=== PATIENT | male | born 1955 | race Caucasian/White ===

== ENCOUNTER 2022-10-03 21:49 | Inpatient (IN) ==
[2022-10-03] MEDS ORDERED: ONDANSETRON INJ 2 MG/ML 2 ML VIAL IV STA (22:11)
[2022-10-03] MEDS ORDERED: MoRPHine SULFATE 4 MG/ML 1 ML CARP\\VIAL IV STA (22:11)
[2022-10-03] MEDS ORDERED: SODIUM CHLORIDE 0.9% 1000ML 1,000 ML IV STA (22:11)
[2022-10-03 22:26] LABS: Basophils # (auto) 0.02 K/uL (0-0.2); Basophils % (auto) 0.3 %; Eosinophils # (auto) 0.01 K/uL (0-0.50); Eosinophils % (auto) 0.2 %; Hematocrit (blood only) 39.6 % (42.0-52.0); Immature Granulocytes # (auto) 0.02 K/uL (0.01-0.20); Immature Granulocytes % (auto) 0.3 %; Lymphocytes # (auto) 0.71 K/uL (1.2-3.4); Lymphocytes % (auto) 11.5 %; Mean Corpuscular Hemoglobin 29.8 pg (25.0-34.0); Mean Corpuscular Hgb Conc 35.4 g/dL (32.0-36.0); Mean Corpuscular Volume 84.3 fL (80.0-100.0); Mean Platelet Volume 10.9 fL (9.4-12.4); Monocytes # (auto) 0.32 K/uL (0.11-0.59); Monocytes % (auto) 5.2 %; Neutrophils # (auto) 5.09 K/uL (1.40-6.50); Neutrophils % (auto) 82.5 %; Platelet Count 153 K/uL (130-400); RDW Standard Deviation 39.9 fL (36.4-46.3); White Blood Count 6.17 K/ul (4.8-10.8)
[2022-10-03 22:31] LABS: iSTAT Creatinine 1.5 mg/dl (0.6-1.3); iSTAT Hemoglobin 13.9 g/dl (14.0-18.0); iSTAT Ionized Calcium 1.09 mmol/l (1.12-1.32)
--- NOTE | 2022-10-03 22:36 | Emergency Department Note ---
History of Present Illness General Chief complaint: Back Injury/Pain Stated complaint: BILATERAL LOWER BACK PAIN, ABD PAIN Time Seen by Provider: 10/03/22 22:05 History of Present Illness Maximum Pain Intensity: 8 This 67-year-old male presents the ER complaining of severe abdominal pain that radiates to his back with jaw pain nausea and vomiting. Patient is pale. is concerned about the way he looks. No history of similar symptoms in the past. No history of kidney stones. Patient denies fever, chills, testicular pain, penile pain, urinary problems. No history of severe pain like this in the past. No numbness or tingling. Home Medications Medication Instructions Recorded Confirmed Type antiarthritic combination no.2 900 900 mg PO QAM 02/13/20 10/03/22 History mg tablet (glucosamine-chondroitin) aspirin 81 mg tablet,delayed 81 mg PO QAM 02/13/20 10/03/22 History release (Adult Aspirin Regimen) cholecalciferol (vitamin D3) 25 25 mcg PO QAM 02/13/20 10/03/22 History mcg (1,000 unit) capsule metformin 500 mg tablet 500 mg PO QAM 02/13/20 10/03/22 History tamsulosin 0.4 mg capsule 0.4 mg PO QAM 02/19/20 10/03/22 History vitamin B complex 1 tab PO QAM 08/12/20 10/03/22 History vitamin E 268 mg (400 unit) capsule 400 unit PO QAM 08/13/20 10/03/22 History citalopram 20 mg tablet 20 mg PO DAILY 10/28/20 10/03/22 History donepezil 10 mg tablet 10 mg PO QAM #90 tabs 09/02/22 10/03/22 Rx Allergies Allergy/AdvReac Type Severity Reaction Status Date / Time erythromycin base Allergy Intermediate rash? Verified 10/03/22 22:52 Macrolide Antibiotics AdvReac Mild ear pain Verified 10/03/22 22:52 Past Med/Surg History Medical History Anxiety no meds BPH (benign prostatic hyperplasia) Chronic back pain 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 Dr. Nielsen 2013 History of cataract surgery bilat History of colonoscopy History of left inguinal hernia repair (09/01/20) Left Inguinal Hernia Open Repair(Left) with mesh- Mata Nielsen MD, FACS 09/01/20 History of surgical removal of lesion Renal cancer lesion removed Mack teeth extracted Family History Uncle Alzheimer disease Aunt Alzheimer disease Mother Cancer Father Aortic aneurysm Other Heart disease Social History Smoking Status: Never smoker Tobacco Type: Smokeless Tobacco (Dip or Chew) Second Hand Exposure: No; Do You Dip or Chew Tobacco: Yes (1 can per 4 days); Hx Alcohol Use: Yes Alcohol type: hard liquor Alcohol Intake Frequency: Monthly or Less Hx Substance Use: No Preferred Language: Andorran Communication Ability: Effective Licensing Manager Required: No Beliefs That Will Affect Care: None marital status: Current Living Situation: Spouse current occupational status: employed Feels Safe at Home: Yes Assistive Devices: Denture - Upper and Glasses Review of Systems A total of 10 systems reviewed and were otherwise negative Physical Exam Vital Signs Vital Signs - 24 hr 10/03/22 21:53 10/03/22 21:59 10/03/22 23:46 Temperature 36.5 C Temperature Source Oral Pulse Rate 67 62 Pulse Rate from SpO2 Sensor Respiratory Rate 22 Blood Pressure 166/93 H Blood Pressure Mean 117 Blood Pressure Position Semi-fowlers Pulse Oximetry 98 91 Oxygen Delivery Method Room Air Room Air Oxygen Flow Rate Sepsis Recent Fever Within 48 Hours No Sepsis New/Unexplained Change in Mental Status N/A Sepsis Action Taken by Nursing No Action Required 10/03/22 22:30 10/03/22 22:30 10/03/22 23:00 Temperature Temperature Source Pulse Rate 71 Pulse Rate from SpO2 Sensor 71 Respiratory Rate 22 Blood Pressure 163/89 H 156/94 H Blood Pressure Mean 113 114 Blood Pressure Position Pulse Oximetry 97 Oxygen Delivery Method Room Air Oxygen Flow Rate Sepsis Recent Fever Within 48 Hours Sepsis New/Unexplained Change in Mental Status Sepsis Action Taken by Nursing 10/03/22 23:00 10/03/22 23:30 10/03/22 23:30 Temperature Temperature Source Pulse Rate 71 61 Pulse Rate from SpO2 Sensor 71 60 Respiratory Rate 17 18 Blood Pressure 165/94 H Blood Pressure Mean 117 Blood Pressure Position Pulse Oximetry 97 97 Oxygen Delivery Method Room Air Room Air Oxygen Flow Rate Sepsis Recent Fever Within 48 Hours Sepsis New/Unexplained Change in Mental Status Sepsis Action Taken by Nursing 10/04/22 00:00 10/04/22 00:13 Temperature Temperature Source Pulse Rate Pulse Rate from SpO2 Sensor Respiratory Rate Blood Pressure Blood Pressure Mean Blood Pressure Position Pulse Oximetry 80 L 94 Oxygen Delivery Method Room Air Nasal Cannula Oxygen Flow Rate 2 Sepsis Recent Fever Within 48 Hours Sepsis New/Unexplained Change in Mental Status Sepsis Action Taken by Nursing VITALS: Vitals are noted on the nurse's note and reviewed by myself. Vital signs stable. GENERAL: Pleasant male who appears in pain, in no acute distress, nondiaphoretic, well-developed well-nourished. SKIN: The skin was without rashes, erythema, edema, or bruising. There is no tenting of the skin. Capillary reflex less than 2 seconds. HEAD: Normocephalic atraumatic. EARS: External auditory canals clear, EYES: Pupils equal round and reactive to light and accommodation. Conjunctivae without injection, sclerae without icterus. Extraocular movements intact. NOSE: Patent, turbinates without inflammation or discharge. MOUTH: Mucous membranes moist. Pharynx without erythema or exudate. Uvula midline. Airway patent. Tongue does not deviate. NECK: Supple without nuchal rigidity. No lymphadenopathy. No thyromegaly. Cervical spine is nontender. No JVD. HEART: Regular rate and rhythm LUNGS: Clear to auscultation bilaterally without wheezes, rales or rhonchi. No retractions or accessory muscle use. ABDOMEN: Positive bowel sounds x 4. Normal tympanic percussion. Soft, nontender, without masses or organomegaly. Gomez sign negative. No guarding or rebound tenderness. No CVA tenderness MUSCULOSKELETAL: No muscle atrophy, erythema, or edema noted. NEURO: Patient was alert and oriented to person place and time. Normal sensation to light and sharp touch. No focal neurological deficits. Course Administered Medications Discontinued Medications Hydromorphone HCl (Hydromorphone Inj 1 Mg/Ml Syringe) 1 mg IV NOW STA Stop: 10/03/22 22:52 Last Admin: 10/03/22 23:02 Dose: 1 mg Documented By: JUANA Sodium Chloride (Nss 1000ml) 1,000 mls @ 999 mls/hr IV .Q1H1M STA Stop: 10/03/22 23:11 Last Infusion: 10/03/22 23:32 Dose: 0 mls/hr Documented By: Admin: 10/03/22 22:24 Dose: 999 mls/hr Documented By: Ioversol (Optiray 320 500ml) 125 ml IV ONCE ONE Stop: 10/03/22 23:33 Last Admin: 10/03/22 23:32 Dose: 105 ml Documented By: KAMRAN Morphine Sulfate (Morphine Sulfate 4 Mg/Ml 1 Ml Carp\Vial) 4 mg IV NOW STA Stop: 10/03/22 22:12 Last Admin: 10/03/22 22:22 Dose: 4 mg Documented By: Ondansetron HCl (Ondansetron Inj 2 Mg/Ml 2 Ml Vial) 4 mg IV NOW STA Stop: 10/03/22 22:12 Last Admin: 10/03/22 22:21 Dose: 4 mg Documented By: Medical Decision Making Medical Records Attestation: I reviewed the patient's medical records. Home Medications Current Medication List: was personally reviewed by me Laboratory Data Attestation: I reviewed the patient's lab results. 10/03/22 21:59 10/03/22 21:59 Lab Results 10/03/22 10/03/22 10/03/22 Range/Units 21:59 21:59 22:19 WBC 6.17 (4.8-10.8) K/ul RBC 4.70 (4.70-6.10) M/uL Hgb 14.0 (14.0-18.0) g/dl POC Hgb 13.9 L (14.0-18.0) g/dl Hct 39.6 L (42.0-52.0) % POC Hct 41 L (42-52) % MCV 84.3 (80.0-100.0) fL MCH 29.8 (25.0-34.0) pg MCHC 35.4 (32.0-36.0) g/dL RDW Std Deviation 39.9 (36.4-46.3) fL RDW Coeff of Renita 13.0 (11.5-14.5) % Plt Count 153 (130-400) K/uL MPV 10.9 (9.4-12.4) fL Immature Gran % (Auto) 0.3 % Neut % (Auto) 82.5 % Lymph % (Auto) 11.5 % Dundy % (Auto) 5.2 % Eos % (Auto) 0.2 % Baso % (Auto) 0.3 % Neut # (Auto) 5.09 (1.40-6.50) K/uL Lymph # (Auto) 0.71 L (1.2-3.4) K/uL Dundy # (Auto) 0.32 (0.11-0.59) K/uL Eos # (Auto) 0.01 (0-0.50) K/uL Baso # (Auto) 0.02 (0-0.2) K/uL Immature Gran # (Auto) 0.02 (0.01-0.20) K/uL POC Sodium 140 (135-144) mmol/L Sodium 138 (136-145) mmol/L POC Potassium 4.0 (3.3-5.0) mmol/L Potassium 3.9 (3.5-5.1) mmol/L POC Chloride 105 (101-112) mmol/L Chloride 106 (98-107) mmol/L Carbon Dioxide 19 L (21-32) mmol/L POC Total CO2 17 L (24-31) mmol/L Anion Gap 13 H (3-11) POC Anion Gap 22.0 (16-25) mmol/L POC BUN 21 H (7-18) mg/dl BUN 21 (6-23) mg/dl Creatinine 1.48 H (0.6-1.4) mg/dl POC Creatinine 1.5 H (0.6-1.3) mg/dl Est Cr Clr Drug Dosing 55.5 ml/min Est GFR ( Amer) 56.3 ml/min Est GFR (Non-Af Amer) 48.6 ml/min BUN/Creatinine Ratio 14.2 (10-20) Glucose 150 H (70-99(Fasting)) mg/dl POC Glucose (other) 154 H (70-99) mg/dl Calcium 9.1 (8.6-10.3) mg/dl POC Ioniz Calcium Charisse 1.09 L (1.12-1.32) mmol/l Total Bilirubin 0.6 (0.2-1.0) mg/dl AST 25 (13-39) U/L ALT 12 (7-52) U/L Alkaline Phosphatase 70 (34-104) U/L Troponin I High Sens 4.7 (0-20) pg/ml Total Protein 7.0 (6.0-8.3) gm/dl Albumin 4.3 (3.4-5.0) gm/dl Globulin 2.7 (2.5-4.0) gm/dl Albumin/Globulin Ratio 1.6 (0.9-2) Lipase 32 (11-82) U/L Urine Color Urine Appearance (Clear) Urine pH (4.5-7.5) Ur Specific [place] (1.000-1.030) Urine Protein (Negative) Urine Glucose (UA) (Negative) Urine Ketones (Negative) Urine Blood (Negative) Urine Nitrite (Negative) Urine Bilirubin (Negative) Urine Urobilinogen (Negative) Ur Leukocyte Esterase (Negative) Urine WBC (Auto) (0-5) /hpf Urine RBC (Auto) (0-4) /hpf U Hyaline Cast (Auto) (0-5) /lpf U Epithel Cells (Auto) (0-5) /lpf Urine Bacteria (Auto) (Negative) SARS-CoV-2, RNA, NAAT (NEGATIVE) 10/03/22 10/03/22 Range/Units 23:38 23:38 WBC (4.8-10.8) K/ul RBC (4.70-6.10) M/uL Hgb (14.0-18.0) g/dl POC Hgb (14.0-18.0) g/dl Hct (42.0-52.0) % POC Hct (42-52) % MCV (80.0-100.0) fL MCH (25.0-34.0) pg MCHC (32.0-36.0) g/dL RDW Std Deviation (36.4-46.3) fL RDW Coeff of Renita (11.5-14.5) % Plt Count (130-400) K/uL MPV (9.4-12.4) fL Immature Gran % (Auto) % Neut % (Auto) % Lymph % (Auto) % Dundy % (Auto) % Eos % (Auto) % Baso % (Auto) % Neut # (Auto) (1.40-6.50) K/uL Lymph # (Auto) (1.2-3.4) K/uL Dundy # (Auto) (0.11-0.59) K/uL Eos # (Auto) (0-0.50) K/uL Baso # (Auto) (0-0.2) K/uL Immature Gran # (Auto) (0.01-0.20) K/uL POC Sodium (135-144) mmol/L Sodium (136-145) mmol/L POC Potassium (3.3-5.0) mmol/L Potassium (3.5-5.1) mmol/L POC Chloride (101-112) mmol/L Chloride (98-107) mmol/L Carbon Dioxide (21-32) mmol/L POC Total CO2 (24-31) mmol/L Anion Gap (3-11) POC Anion Gap (16-25) mmol/L POC BUN (7-18) mg/dl BUN (6-23) mg/dl Creatinine (0.6-1.4) mg/dl POC Creatinine (0.6-1.3) mg/dl Est Cr Clr Drug Dosing ml/min Est GFR ( Amer) ml/min Est GFR (Non-Af Amer) ml/min BUN/Creatinine Ratio (10-20) Glucose (70-99(Fasting)) mg/dl POC Glucose (other) (70-99) mg/dl Calcium (8.6-10.3) mg/dl POC Ioniz Calcium Charisse (1.12-1.32) mmol/l Total Bilirubin (0.2-1.0) mg/dl AST (13-39) U/L ALT (7-52) U/L Alkaline Phosphatase (34-104) U/L Troponin I High Sens (0-20) pg/ml Total Protein (6.0-8.3) gm/dl Albumin (3.4-5.0) gm/dl Globulin (2.5-4.0) gm/dl Albumin/Globulin Ratio (0.9-2) Lipase (11-82) U/L Urine Color Yellow Urine Appearance Clear (Clear) Urine pH 8.5 H (4.5-7.5) Ur Specific [place] 1.022 (1.000-1.030) Urine Protein Negative (Negative) Urine Glucose (UA) Negative (Negative) Urine Ketones 2+ H (Negative) Urine Blood Trace H (Negative) Urine Nitrite Negative (Negative) Urine Bilirubin Negative (Negative) Urine Urobilinogen Negative (Negative) Ur Leukocyte Esterase Negative (Negative) Urine WBC (Auto) 0 (0-5) /hpf Urine RBC (Auto) 0-4 (0-4) /hpf U Hyaline Cast (Auto) 0 (0-5) /lpf U Epithel Cells (Auto) 0-5 (0-5) /lpf Urine Bacteria (Auto) Negative (Negative) SARS-CoV-2, RNA, NAAT NEGATIVE (NEGATIVE) Imaging Data Attestation: I personally reviewed and interpreted this imaging study as follows: Radiologist's Impression: Abdomen/Pelvis CTA 10/03/22 22:11 Exam(s): CTA ABDOMEN + PELVIS With Contrast IV Amt: 105 ml optiray 320 EXAM: CT Angiography Abdomen and Pelvis With Runoff to the Lower Extremities With Intravenous Contrast CLINICAL HISTORY: Reason for exam: severe abd pain to back. TECHNIQUE: Axial computed tomographic angiography images of the abdomen, pelvis and lower extremities with intravenous contrast. Automated exposure control was utilized for the study. A dose lowering technique was utilized adhering to the principles of ALARA. MIP reconstructed images were created and reviewed. CONTRAST: Patient received 105 ml optiray 320 of IV contrast COMPARISON: Comparison made to prior CT scan of the abdomen pelvis from April 08, 2019. FINDINGS: VASCULATURE: Aorta: No acute findings. No abdominal aortic aneurysm. No dissection. Celiac trunk and mesenteric arteries: No acute findings. No occlusion or significant stenosis. Renal arteries: No acute findings. No occlusion or significant stenosis. Right iliac arteries: No acute findings. No occlusion or significant stenosis. Left iliac arteries: No acute findings. No occlusion or significant stenosis. Lung bases: Unremarkable. No mass. No consolidation. ABDOMEN: Liver: Hepatic steatosis.. No mass. Gallbladder and bile ducts: Unremarkable. No calcified stones. No ductal dilation. Pancreas: Unremarkable. No ductal dilation. No mass. Spleen: Unremarkable. No splenomegaly. Adrenals: Unremarkable. No mass. Kidneys and ureters: Left hydronephrosis with significant inflammation of soft tissue stranding about the left ureter. Left nephrolithiasis. Right renal cysts. No solid mass. Stomach and bowel: Diverticulosis throughout the colon. There is thickening and edema of the ascending, descending and sigmoid colon wall and rectal wall with mild inflammation of the adjacent fat. No obstruction. No mucosal thickening. PELVIS: Appendix: No findings to suggest acute appendicitis. Bladder: Unremarkable. No mass. Reproductive: Prostatomegaly with moderate mass-effect on the urinary trigone. ABDOMEN, PELVIS and LOWER EXTREMITIES: Intraperitoneal space: Unremarkable. No significant fluid collection. No free air. Bones/joints: Moderate to advanced disc degeneration at L1 to through L5-S1. No acute fracture. No dislocation. Soft tissues: There is a 9.5 mm fat-containing umbilical hernia. Lymph nodes: Unremarkable. No enlarged lymph nodes. IMPRESSION: Normal arteries of the abdomen and pelvis. Left hydronephrosis with findings concerning for recently passed urinary calculus. Findings concerning for colitis of the ascending, descending and sigmoid colon with proctitis, which may be of infectious or inflammatory etiologies. Hepatic steatosis. Diverticulosis throughout the colon. Left nephrolithiasis. Electronically signed by: Myriam Cunningham MD 10/04/22 00:00 AM Chest CTA 10/03/22 22:11 Exam(s): CTA CHEST W/WO Contrast IV Amt: 105 ml optiray 320 EXAM: CT Angiography Chest Without and With Intravenous Contrast CLINICAL HISTORY: Reason for exam: severe abd pain to back. TECHNIQUE: Axial computed tomographic angiography images of the chest without and with intravenous contrast. Automated exposure control was utilized for the study. A dose lowering technique was utilized adhering to the principles of ALARA. MIP reconstructed images were created and reviewed. CONTRAST: Patient received 105 ml optiray 320 of IV contrast COMPARISON: No relevant prior studies available. FINDINGS: Pulmonary arteries: Unremarkable. No pulmonary embolism. Aorta: Ascending aortic aneurysm measuring 35.5 mm in diameter. Lungs: Unremarkable. No mass. No consolidation. Pleural space: Unremarkable. No significant effusion. No pneumothorax. Heart: Unremarkable. No cardiomegaly. No significant pericardial effusion. No evidence of RV dysfunction. Bones/joints: No acute fracture. No dislocation. Soft tissues: Small hiatal hernia. Small lipoma in the right infraspinatus muscle. Lymph nodes: Unremarkable. No enlarged lymph nodes. IMPRESSION: Ascending aortic aneurysm measuring 35.5 mm in diameter. Otherwise, negative CT angiogram of the chest. Electronically signed by: Myriam Cunningham MD 10/04/22 00:04 AM MDM Narrative Prior records/ancillary studies reviewed. Triage Nursing notes reviewed. Additional history obtained from family. The patient's history was concerning for severe abdominal pain that radiates to his back with jaw pain. Differential diagnosis: Etiologies such as dissection, cardiac, appendicitis, diverticulitis, PUD, biliary pathology, UTI, pancreatitis, obstruction, mesenteric ischemia, aortic pathology, infections, inflammatory bowel disease, renal colic, as well as others were entertained. Physical examination findings: As above. ER treatment provided: An order was placed for continuous cardiac monitoring. The monitor shows a rate of 60-100 with a sinus rhythm per my Independent interpretation. Morphine Zofran IV were ordered. I-STAT was ordered On reassessment the patient felt better. Diagnostics interpreted by me: ECG: Ordered for jaw pain EKG: Normal sinus, normal intervals, no acute ST-T wave changes. Poor baseline. Rate of 60. Impression normal sinus rhythm poor baseline independent interpreted by myself I think arrhythmia is unlikely. EKG shows normal sinus rhythm with no interval abnormalities such as QT prolongation or WPW. There are no findings to suggest Brugada syndrome. Cardiac monitoring in the emergency department reveals no tachycardic or bradycardic dysrhythmia. Hypertrophic cardiomyopathy was cons idered but there are no clear historical elements pointing toward this. EKG is not suggestive. The QRS voltage is not extremely large and there are no suggestive Q waves. The labs Independently Interpreted by myself revealed Slightly elevated creatinine from baseline per chart review No worrisome leukocytosis, stable H&H. No UTI Imaging studies: Chest x-ray with no acute consolidation, pneumothorax or free air per my independent interpretation CTA is reviewed and read as above by radiology HEART SCORE: Hx: high/mod/low suspicion: 0 ECG: ST depression/nonspecific changes/normal: 0 Age: Greater than 65/45-64/less than 45: 2 Risk factors: (Hypertension, hyperlipidemia, diabetes, coronary disease, tobacco use, cocaine use): 2 Troponin: Greater than 2 times normal limits/1-2 times normal limits/normal: 0 Total: 4 Consultation: A consultation was placed with the hospitalist. The case was discussed and diagnostics were reviewed. The patient was evaluated in the ER for further treat ment. Exam and history seem consistent with recently passed kidney stone with acute kidney injury and colitis. Labs and diagnostics were independent turbid by myself. Radiology read the CAT scan. Patient still moderate mount of pain. Medicine is consulted. He will be evaluated for admission. Patient had no leukocytosis. Slightly elevated creatinine. Urine was not infected. By the evaluation outlined above emergent etiologies such as appendicitis, diverticulitis, PUD, biliary pathology, UTI, pancreatitis, obstruction, mesenteric ischemia, aortic pathology, infections, inflammatory bowel disease, as well as others were deemed relatively unlikely. The pt informed about the findings as listed above. All questions were answered and pleased with the treatment. The chart was completed utilizing [employer] voice recognition software. Grammatical errors, random word insertions, pronoun errors, and incomplete sentences are an occassional consequence of this system due to software limitations, ambient noise, and hardware issues. Any formal questions or concerns about the content, text, or information contained within the body of this dictation should be directly addressed to the physician assistant research scientist for clarification. Impression & Plan Colitis, Acute kidney injury, Kidney stone Discharge Plan Visit Data Chief Complaint: Back Injury/Pain Stated Complaint: BILATERAL LOWER BACK PAIN, ABD PAIN ED Provider: Christopher Redman ED Midlevel Provider: Sobia Krishnamurthy Discharge Problem: Colitis, Acute kidney injury, Kidney stone Patient Disposition: Admitted As Inpatient Condition: Fair Forms Stand Alone Forms: My [facility] [employer] Prescriptions Prescriptions: No Action donepezil 10 mg tablet 10 mg PO QAM Qty: 90 1RF citalopram 20 mg tablet 20 mg PO DAILY aspirin [Adult Aspirin Regimen] 81 mg tablet,delayed release (DR/EC) 81 mg PO QAM glucosamine-chondroitin 900 mg tablet 900 mg PO QAM metformin 500 mg tablet 500 mg PO QAM cholecalciferol (vitamin D3) 25 mcg (1,000 unit) capsule 25 mcg PO QAM tamsulosin 0.4 mg capsule 0.4 mg PO QAM vitamin B complex Tablet 1 tab PO QAM vitamin E 400 unit Capsule 400 unit PO QAM Referrals Referrals: Michael Monroy MD [Primary Care Provider] -
[2022-10-03 22:42] LABS: Albumin Globulin Ratio 1.6 (0.9-2); Albumin Level 4.3 gm/dl (3.4-5.0); BUN Creatinine Ratio 14.2 (10-20); Bilirubin,Total 0.6 mg/dl (0.2-1.0); Calcium 9.1 mg/dl (8.6-10.3); Creatinine Clr Calc Pharmacy 55.5 ml/min; Est GFR (African American) 56.3 ml/min; Est GFR (Non-African American) 48.6 ml/min; Globulin 2.7 gm/dl (2.5-4.0); Potassium 3.9 mmol/L (3.5-5.1)
[2022-10-03 22:49] LABS: Troponin I High Sensitivity 4.7 pg/ml (0-20)
[2022-10-03] MEDS ORDERED: HYDROmorphone INJ 1 MG/ML SYRINGE IV STA (22:51)
[2022-10-03] MEDS ORDERED: OPTIRAY 320 500ml IV ONE (23:32)
[2022-10-03 23:49] LABS: Appearance Urine Clear (Clear); Bacteria Urine Automated Negative (Negative); Bilirubin Urine Negative (Negative); Blood Urine Trace (Negative); Cast Urine Automated 0 /lpf (0-5); Color Urine Yellow; Epithelial Cell Urine Auto 0-5 /lpf (0-5); Glucose Urine UA Negative (Negative); Ketones Urine 2+ (Negative); Leukocyte Esterase Urine Negative (Negative); Nitrite Urine Negative (Negative); Protein Urine Negative (Negative); RBC Urine Automated 0-4 /hpf (0-4); Specific Gravity Urine 1.022 (1.000-1.030); Urobilinogen Urine Negative (Negative); WBC Urine Automated 0 /hpf (0-5); pH Urine 8.5 (4.5-7.5)
--- NOTE | 2022-10-04 00:01 | CT Scan Report ---
Exam(s): CTA ABDOMEN + PELVIS With Contrast IV Amt: 105 ml optiray 320 EXAM: CT Angiography Abdomen and Pelvis With Runoff to the Lower Extremities With Intravenous Contrast CLINICAL HISTORY: Reason for exam: severe abd pain to back. TECHNIQUE: Axial computed tomographic angiography images of the abdomen, pelvis and lower extremities with intravenous contrast. Automated exposure control was utilized for the study. A dose lowering technique was utilized adhering to the principles of ALARA. MIP reconstructed images were created and reviewed. CONTRAST: Patient received 105 ml optiray 320 of IV contrast COMPARISON: Comparison made to prior CT scan of the abdomen pelvis from April 08, 2019. FINDINGS: VASCULATURE: Aorta: No acute findings. No abdominal aortic aneurysm. No dissection. Celiac trunk and mesenteric arteries: No acute findings. No occlusion or significant stenosis. Renal arteries: No acute findings. No occlusion or significant stenosis. Right iliac arteries: No acute findings. No occlusion or significant stenosis. Left iliac arteries: No acute findings. No occlusion or significant stenosis. Lung bases: Unremarkable. No mass. No consolidation. ABDOMEN: Liver: Hepatic steatosis.. No mass. Gallbladder and bile ducts: Unremarkable. No calcified stones. No ductal dilation. Pancreas: Unremarkable. No ductal dilation. No mass. Spleen: Unremarkable. No splenomegaly. Adrenals: Unremarkable. No mass. Kidneys and ureters: Left hydronephrosis with significant inflammation of soft tissue stranding about the left ureter. Left nephrolithiasis. Right renal cysts. No solid mass. Stomach and bowel: Diverticulosis throughout the colon. There is thickening and edema of the ascending, descending and sigmoid colon wall and rectal wall with mild inflammation of the adjacent fat. No obstruction. No mucosal thickening. PELVIS: Appendix: No findings to suggest acute appendicitis. Bladder: Unremarkable. No mass. Reproductive: Prostatomegaly with moderate mass-effect on the urinary trigone. ABDOMEN, PELVIS and LOWER EXTREMITIES: Intraperitoneal space: Unremarkable. No significant fluid collection. No free air. Bones/joints: Moderate to advanced disc degeneration at L1 to through L5-S1. No acute fracture. No dislocation. Soft tissues: There is a 9.5 mm fat-containing umbilical hernia. Lymph nodes: Unremarkable. No enlarged lymph nodes. IMPRESSION: Normal arteries of the abdomen and pelvis. Left hydronephrosis with findings concerning for recently passed urinary calculus. Findings concerning for colitis of the ascending, descending and sigmoid colon with proctitis, which may be of infectious or inflammatory etiologies. Hepatic steatosis. Diverticulosis throughout the colon. Left nephrolithiasis. Electronically signed by: Myriam Cunningham MD 10/04/22 00:00 AM
--- NOTE | 2022-10-04 00:05 | CT Scan Report ---
Exam(s): CTA CHEST W/WO Contrast IV Amt: 105 ml optiray 320 EXAM: CT Angiography Chest Without and With Intravenous Contrast CLINICAL HISTORY: Reason for exam: severe abd pain to back. TECHNIQUE: Axial computed tomographic angiography images of the chest without and with intravenous contrast. Automated exposure control was utilized for the study. A dose lowering technique was utilized adhering to the principles of ALARA. MIP reconstructed images were created and reviewed. CONTRAST: Patient received 105 ml optiray 320 of IV contrast COMPARISON: No relevant prior studies available. FINDINGS: Pulmonary arteries: Unremarkable. No pulmonary embolism. Aorta: Ascending aortic aneurysm measuring 35.5 mm in diameter. Lungs: Unremarkable. No mass. No consolidation. Pleural space: Unremarkable. No significant effusion. No pneumothorax. Heart: Unremarkable. No cardiomegaly. No significant pericardial effusion. No evidence of RV dysfunction. Bones/joints: No acute fracture. No dislocation. Soft tissues: Small hiatal hernia. Small lipoma in the right infraspinatus muscle. Lymph nodes: Unremarkable. No enlarged lymph nodes. IMPRESSION: Ascending aortic aneurysm measuring 35.5 mm in diameter. Otherwise, negative CT angiogram of the chest. Electronically signed by: Myriam Cunningham MD 10/04/22 00:04 AM
--- NOTE | 2022-10-04 00:57 | History & Physical Report ---
Date of Service October 03, 2022 Assessment & Plan (1) Colitis: Plan: 67yo male presenting with acute onset of vomiting, diarrhea and severe back/flank and abdominal pain. CT of the abdomen concerning for colitis of the ascending, descending and sigmoid colon with proctitis - infectious vs inflammatory etiology. Patient is afebrile, HD stable. Abdomen is soft, ND/NT. Labs are without leukocytosis. No report of diarrhea or abdominal pain prior to this evening. -Admit to medical -Check Stool PCR and C. diff -Will hold off on antibiotics for now -Repeat CBC and Chemistry in AM -IVF - LR at 125mL/hr x 1L (2) Kidney stone: Plan: Possible recently passed kidney stone noted on CT imaging. Passing stone could be possible source of patient's severe episode - pain, vomiting/diarrhea? Left nephrolithiasis present with no report of hydronephrosis or obstruction currently. -Monitor UOP -Repeat chemistry in AM (3) Aortic aneurysm: Plan: CTA of the chest performed which revealed a 3.55 cm ascending aortic aneurysm. No prior angiography of aorta performed. Of note, patient's father of a ruptured aortic aneurysm at the age of 32 -Risk factor management - control BP -Monitor with serial imaging -Consider Vascular Surgery Consultation (4) Dementia: Plan: Patient is oriented to self -Frequent orientation -Continue Aircept 10mg po qAM (5) BPH (benign prostatic hyperplasia): Plan: Chronic -Continue Flomax 0.4mg po daily -Monitor UOP (6) Diabetes: Plan: Patient on Metformin 500mg po daily. No HgbA1C in our records -ISS -Check HgbA1C with AM labs F/E/N - LR at 125mL/hr x 1L, monitor electrolytes and replete as needed Ppx - low risk for DVT Code- Full per discussion with patient and Dispo - Admit to medical History of Present Illness Chief Complaint: Abdominal pain Primary Care Provider: Michael Monroy MD Kostas Tolliver is a 67yo male with history of HTN, DM, Dementia, clear cell RCC presenting with acute onset of abdominal/flank pain. Patient with underlying dementia and does not provide details of the events prior to arrival. is at bedside and provides history. Patient was in his usual state of health until this evening around 18:30 when he developed acute onset of vomiting and watery diarrhea. His vomiting persisted until approximately 20:00 then he developed severe pain in the back, flank and abdomen. reports that patient was very restless and couldn't get comfortable. called control operator service and was instructed to give him Ibuprofen. He took some Ibuprofen then promptly vomited it up and they came to the ER. Upon arrival patient was noted to be pale and ill in appearance. He was administered Morphine, Dilaudid and Zofran wtih improvement in symptoms. Presently he denies any complaints. ER Course: Dilaudid Morphine Zofran Allergies Allergy/AdvReac Type Severity Reaction Status Date / Time erythromycin base Allergy Intermediate rash? Verified 10/03/22 22:52 Macrolide Antibiotics AdvReac Mild ear pain Verified 10/03/22 22:52 Home Medications Medication Instructions Recorded Confirmed Type antiarthritic combination no.2 900 900 mg PO QAM 02/13/20 10/03/22 History mg tablet (glucosamine-chondroitin) aspirin 81 mg tablet,delayed 81 mg PO QAM 02/13/20 10/03/22 History release (Adult Aspirin Regimen) cholecalciferol (vitamin D3) 25 25 mcg PO QAM 02/13/20 10/03/22 History mcg (1,000 unit) capsule metformin 500 mg tablet 500 mg PO QAM 02/13/20 10/03/22 History tamsulosin 0.4 mg capsule 0.4 mg PO QAM 02/19/20 10/03/22 History vitamin B complex 1 tab PO QAM 08/12/20 10/03/22 History vitamin E 268 mg (400 unit) capsule 400 unit PO QAM 08/13/20 10/03/22 History citalopram 20 mg tablet 20 mg PO DAILY 10/28/20 10/03/22 History donepezil 10 mg tablet 10 mg PO QAM #90 tabs 09/02/22 10/03/22 Rx Past Med/Surg History Medical History Anxiety no meds BPH (benign prostatic hyperplasia) Chronic back pain 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 Dr. Nielsen 2013 History of cataract surgery bilat History of colonoscopy History of left inguinal hernia repair (09/01/20) Left Inguinal Hernia Open Repair(Left) with mesh- Mata Nielsen MD, FACS 09/01/20 History of surgical removal of lesion Renal cancer lesion removed [place] teeth extracted Family History Uncle Alzheimer disease Aunt Alzheimer disease Mother Cancer Father Aortic aneurysm Other Heart disease Social History Smoking Status: Never smoker Tobacco Type: Smokeless Tobacco (Dip or Chew) Second Hand Exposure: No; Do You Dip or Chew Tobacco: Yes (1 can per 4 days); Hx Alcohol Use: Yes Alcohol type: hard liquor Alcohol Intake Frequency: Monthly or Less Hx Substance Use: No Preferred Language: Dutch Communication Ability: Effective Warp Coiler Required: No Beliefs That Will Affect Care: None marital status: Current Living Situation: Spouse current occupational status: employed Feels Safe at Home: Yes Assistive Devices: Denture - Upper and Glasses Review of Systems Review of Systems: All systems reviewed & are unremarkable except as noted in HPI & below Physical Exam Physical Exam: General: patient resting comfortably, NAD, non-toxic in appearance, AA&O to self. Patient does not answer many questions re: his medical issues or symptoms Skin: warm, dry, intact, no rashes or lesions HEENT: NC/AT, PERRL, EOMI, anicteric sclera, conjunctiva without injection, external ear normal to inspection and nontender, nares patent, moist mucus membranes, dentition intact, no oropharyngeal lesions, neck supple, trachea midline, no LAD, no thyromegaly, no JVD Heart: +S1/S2, regular, no m/r/g Lungs: equal air entry bilaterally, no rales/rhonchi/wheezes Abd: +BS, soft, NT/ND, no masses/organomegaly/ascites Ext: warm, 2+ pulses in UE/LE bilaterally, no clubbing/cyanosis or edema Neuro: nonfocal, patient AA&O x 1, speech intact, no facial droop, moving all extremities on command with equal strength 5/5 Results & Data Results & Data Vital Signs (Past 12 Hours) Vital Signs Temp Pulse Resp BP Pulse Ox O2 Del Method O2 Flow Rate 10/04/22 00:13 94 Nasal Cannula 2 10/04/22 00:00 80 L Room Air 10/03/22 23:30 61 18 97 Room Air 10/03/22 23:30 165/94 H 10/03/22 23:00 71 17 97 Room Air 10/03/22 23:00 156/94 H 10/03/22 22:30 71 22 97 Room Air 10/03/22 22:30 163/89 H 10/03/22 23:46 91 Room Air 10/03/22 21:59 36.5 C 62 22 166/93 H 98 Room Air 10/03/22 21:53 67 Laboratory Results Laboratory Results WBC 6.17 K/ul (4.8-10.8) 10/03/22 21:59 RBC 4.70 M/uL (4.70-6.10) 10/03/22 21:59 Hgb 14.0 g/dl (14.0-18.0) 10/03/22 21:59 POC Hgb 13.9 g/dl (14.0-18.0) L 10/03/22 22:19 Hct 39.6 % (42.0-52.0) L 10/03/22 21:59 POC Hct 41 % (42-52) L 10/03/22 22:19 MCV 84.3 fL (80.0-100.0) 10/03/22 21:59 MCH 29.8 pg (25.0-34.0) 10/03/22 21:59 MCHC 35.4 g/dL (32.0-36.0) 10/03/22 21:59 RDW Std Deviation 39.9 fL (36.4-46.3) 10/03/22 21:59 RDW Coeff of Renita 13.0 % (11.5-14.5) 10/03/22 21:59 Plt Count 153 K/uL (130-400) 10/03/22 21:59 MPV 10.9 fL (9.4-12.4) 10/03/22 21:59 Immature Gran % (Auto) 0.3 % 10/03/22 21:59 Neut % (Auto) 82.5 % 10/03/22 21:59 Lymph % (Auto) 11.5 % 10/03/22 21:59 [place] % (Auto) 5.2 % 10/03/22 21:59 Eos % (Auto) 0.2 % 10/03/22 21:59 Baso % (Auto) 0.3 % 10/03/22 21:59 Neut # (Auto) 5.09 K/uL (1.40-6.50) 10/03/22 21:59 Lymph # (Auto) 0.71 K/uL (1.2-3.4) L 10/03/22 21:59 [place] # (Auto) 0.32 K/uL (0.11-0.59) 10/03/22 21:59 Eos # (Auto) 0.01 K/uL (0-0.50) 10/03/22 21:59 Baso # (Auto) 0.02 K/uL (0-0.2) 10/03/22 21:59 Immature Gran # (Auto) 0.02 K/uL (0.01-0.20) 10/03/22 21:59 POC Sodium 140 mmol/L (135-144) 10/03/22 22:19 Sodium 138 mmol/L (136-145) 10/03/22 21:59 POC Potassium 4.0 mmol/L (3.3-5.0) 10/03/22 22:19 Potassium 3.9 mmol/L (3.5-5.1) 10/03/22 21:59 POC Chloride 105 mmol/L (101-112) 10/03/22 22:19 Chloride 106 mmol/L (98-107) 10/03/22 21:59 Carbon Dioxide 19 mmol/L (21-32) L 10/03/22 21:59 POC Total CO2 17 mmol/L (24-31) L 10/03/22 22:19 Anion Gap 13 (3-11) H 10/03/22 21:59 POC Anion Gap 22.0 mmol/L (16-25) 10/03/22 22:19 POC BUN 21 mg/dl (7-18) H 10/03/22 22:19 BUN 21 mg/dl (6-23) 10/03/22 21:59 Creatinine 1.48 mg/dl (0.6-1.4) H 10/03/22 21:59 POC Creatinine 1.5 mg/dl (0.6-1.3) H 10/03/22 22:19 Est Cr Clr Drug Dosing 55.5 ml/min 10/03/22 21:59 Est GFR ( Amer) 56.3 ml/min 10/03/22 21:59 Est GFR (Non-Af Amer) 48.6 ml/min 10/03/22 21:59 BUN/Creatinine Ratio 14.2 (10-20) 10/03/22 21:59 Glucose 150 mg/dl (70-99(Fasting)) H 10/03/22 21:59 POC Glucose (other) 154 mg/dl (70-99) H 10/03/22 22:19 Calcium 9.1 mg/dl (8.6-10.3) 10/03/22 21:59 POC Ioniz Calcium [place] 1.09 mmol/l (1.12-1.32) L 10/03/22 22:19 Total Bilirubin 0.6 mg/dl (0.2-1.0) 10/03/22 21:59 AST 25 U/L (13-39) 10/03/22 21:59 ALT 12 U/L (7-52) 10/03/22 21:59 Alkaline Phosphatase 70 U/L (34-104) 10/03/22 21:59 Troponin I High Sens 4.7 pg/ml (0-20) 10/03/22 21:59 Total Protein 7.0 gm/dl (6.0-8.3) 10/03/22 21:59 Albumin 4.3 gm/dl (3.4-5.0) 10/03/22 21:59 Globulin 2.7 gm/dl (2.5-4.0) 10/03/22 21:59 Albumin/Globulin Ratio 1.6 (0.9-2) 10/03/22 21: Lipase 32 U/L (11-82) 10/03/22 21:59 Urine Color Yellow 10/03/22 23:38 Urine Appearance Clear (Clear) 10/03/22 23:38 Urine pH 8.5 (4.5-7.5) H 10/03/22 23:38 Ur Specific [place] 1.022 (1.000-1.030) 10/03/22 23:38 Urine Protein Negative (Negative) 10/03/22 23:38 Urine Glucose (UA) Negative (Negative) 10/03/22 23:38 Urine Ketones 2+ (Negative) H 10/03/22 23:38 Urine Blood Trace (Negative) H 10/03/22 23:38 Urine Nitrite Negative (Negative) 10/03/22 23:38 Urine Bilirubin Negative (Negative) 10/03/22 23:38 Urine Urobilinogen Negative (Negative) 10/03/22 23:38 Ur Leukocyte Esterase Negative (Negative) 10/03/22 23:38 Urine WBC (Auto) 0 /hpf (0-5) 10/03/22 23:38 Urine RBC (Auto) 0-4 /hpf (0-4) 10/03/22 23:38 U Hyaline Cast (Auto) 0 /lpf (0-5) 10/03/22 23:38 U Epithel Cells (Auto) 0-5 /lpf (0-5) 10/03/22 23:38 Urine Bacteria (Auto) Negative (Negative) 10/03/22 23:38 SARS-CoV-2, RNA, NAAT NEGATIVE (NEGATIVE) 10/03/22 23:38 Impressions Abdomen/Pelvis CTA 10/03/22 22:11 Exam(s): CTA ABDOMEN + PELVIS With Contrast IV Amt: 105 ml optiray 320 EXAM: CT Angiography Abdomen and Pelvis With Runoff to the Lower Extremities With Intravenous Contrast CLINICAL HISTORY: Reason for exam: severe abd pain to back. TECHNIQUE: Axial computed tomographic angiography images of the abdomen, pelvis and lower extremities with intravenous contrast. Automated exposure control was utilized for the study. A dose lowering technique was utilized adhering to the principles of ALARA. MIP reconstructed images were created and reviewed. CONTRAST: Patient received 105 ml optiray 320 of IV contrast COMPARISON: Comparison made to prior CT scan of the abdomen pelvis from April 08, 2019. FINDINGS: VASCULATURE: Aorta: No acute findings. No abdominal aortic aneurysm. No dissection. Celiac trunk and mesenteric arteries: No acute findings. No occlusion or significant stenosis. Renal arteries: No acute findings. No occlusion or significant stenosis. Right iliac arteries: No acute findings. No occlusion or significant stenosis. Left iliac arteries: No acute findings. No occlusion or significant stenosis. Lung bases: Unremarkable. No mass. No consolidation. ABDOMEN: Liver: Hepatic steatosis.. No mass. Gallbladder and bile ducts: Unremarkable. No calcified stones. No ductal dilation. Pancreas: Unremarkable. No ductal dilation. No mass. Spleen: Unremarkable. No splenomegaly. Adrenals: Unremarkable. No mass. Kidneys and ureters: Left hydronephrosis with significant inflammation of soft tissue stranding about the left ureter. Left nephrolithiasis. Right renal cysts. No solid mass. Stomach and bowel: Diverticulosis throughout the colon. There is thickening and edema of the ascending, descending and sigmoid colon wall and rectal wall with mild inflammation of the adjacent fat. No obstruction. No mucosal thickening. PELVIS: Appendix: No findings to suggest acute appendicitis. Bladder: Unremarkable. No mass. Reproductive: Prostatomegaly with moderate mass-effect on the urinary trigone. ABDOMEN, PELVIS and LOWER EXTREMITIES: Intraperitoneal space: Unremarkable. No significant fluid collection. No free air. Bones/joints: Moderate to advanced disc degeneration at L1 to through L5-S1. No acute fracture. No dislocation. Soft tissues: There is a 9.5 mm fat-containing umbilical hernia. Lymph nodes: Unremarkable. No enlarged lymph nodes. IMPRESSION: Normal arteries of the abdomen and pelvis. Left hydronephrosis with findings concerning for recently passed urinary calculus. Findings concerning for colitis of the ascending, descending and sigmoid colon with proctitis, which may be of infectious or inflammatory etiologies. Hepatic steatosis. Diverticulosis throughout the colon. Left nephrolithiasis. Electronically signed by: Myriam Cunningham MD 10/04/22 00:00 AM Chest CTA 10/03/22 22:11 Exam(s): CTA CHEST W/WO Contrast IV Amt: 105 ml optiray 320 EXAM: CT Angiography Chest Without and With Intravenous Contrast CLINICAL HISTORY: Reason for exam: severe abd pain to back. TECHNIQUE: Axial computed tomographic angiography images of the chest without and with intravenous contrast. Automated exposure control was utilized for the study. A dose lowering technique was utilized adhering to the principles of ALARA. MIP reconstructed images were created and reviewed. CONTRAST: Patient received 105 ml optiray 320 of IV contrast COMPARISON: No relevant prior studies available. FINDINGS: Pulmonary arteries: Unremarkable. No pulmonary embolism. Aorta: Ascending aortic aneurysm measuring 35.5 mm in diameter. Lungs: Unremarkable. No mass. No consolidation. Pleural space: Unremarkable. No significant effusion. No pneumothorax. Heart: Unremarkable. No cardiomegaly. No significant pericardial effusion. No evidence of RV dysfunction. Bones/joints: No acute fracture. No dislocation. Soft tissues: Small hiatal hernia. Small lipoma in the right infraspinatus muscle. Lymph nodes: Unremarkable. No enlarged lymph nodes. IMPRESSION: Ascending aortic aneurysm measuring 35.5 mm in diameter. Otherwise, negative CT angiogram of the chest. Electronically signed by: Myriam Cunningham MD 10/04/22 00:04 AM PG Care Time/CCT Total # of Minutes Spent Total Time Spent with Patient: Total time spent is greater than 50% in coordination of care (as documented) at patient's floor/unit and/or counseling patient: Coding Level of Care Code 35760 INT INP/OBS CARE 2/55MIN Diagnoses Colitis K52.9 Kidney stone N20.0 Aortic aneurysm I71.9 Dementia F03.90 BPH (benign prostatic hyperplasia) N40.0 Diabetes E11.9
[2022-10-04] MEDS ORDERED: GLUCOSE 10 TAB/TUBE PO PRN (01:57)
[2022-10-04] MEDS ORDERED: CARBOHYDRATES FOR HYPOGLYCEMIA PO PRN (01:57)
[2022-10-04] MEDS ORDERED: ONDANSETRON INJ 2 MG/ML 2 ML VIAL IV PRN (01:57)
[2022-10-04] MEDS ORDERED: GLUCAGON FOR INJ 1 MG VIAL SQ PRN (01:57)
[2022-10-04] MEDS ORDERED: DEXTROSE 50% 50 ML SYRINGE IV PRN (01:57)
[2022-10-04] MEDS ORDERED: GLUCOSE 40% GEL 15 GM TUBE PO PRN (01:57)
[2022-10-04] MEDS ORDERED: ACETAMINOPHEN 325 MG TAB PO PRN (01:57)
[2022-10-04] MEDS ORDERED: LACTATED RINGER'S 1,000 ML IV SCH (01:57)
[2022-10-04 02:54] LABS: Magnesium 1.7 mg/dl (1.7-2.4); Phosphorus 1.1 mg/dl (2.5-4.9)
[2022-10-04] MEDS ORDERED: POTASSIUM PHOS 3 MMOL/1 ML INFUSION IV STA (03:06)
[2022-10-04] MEDS ORDERED: POTASSIUM PHOSPHATE 30 MMOL in SODIUM CHLORIDE 0.9% 500 ML IV ONE (03:15)
[2022-10-04 06:59] LABS: Estimated Average Glucose 117 mg/dl; Hemoglobin A1C 5.7 % (4.5-5.6)
--- NOTE | 2022-10-04 08:35 | XRay Report ---
XR chest 1V portable CLINICAL HISTORY: Chest pain, nonspecific TECHNIQUE: Single frontal radiograph of the chest was obtained. Comparison: Comparison is made to chest radiograph 06/11/2020 FINDINGS: No lines and tubes are seen. The cardiomediastinal silhouette is normal. The lungs are clear. No evid ence of pleural effusion or pneumothorax. IMPRESSION: No acute chest disease. ACT 112: Negative or not required by law. Electronically signed by: Virgilio Mccall M.D. 10/04/2022 8:34 AM
[2022-10-04] MEDS: DONEPEZIL HCL 10 MG TAB PO SCH (08:46)
[2022-10-04] MEDS: TAMSULOSIN HCL 0.4 MG CAP PO SCH (08:46)
[2022-10-04] MEDS: ASPIRIN 81 MG ECTAB PO SCH (08:46)
[2022-10-04] MEDS: CITALOPRAM 20 MG TAB PO SCH (08:47)
[2022-10-04] MEDS: INSULIN ASPART PER UNIT CHARGE SC SCH ×4 (08:51→21:49)
--- NOTE | 2022-10-04 10:34 | Electrocardiogram Report ---
Test Reason : Blood Pressure : / mmHG Vent. Rate : 060 BPM Atrial Rate : 060 BPM P-R Int : 158 ms QRS Dur : 116 ms QT Int : 442 ms P-R-T Axes : 065 -18 003 degrees QTc Int : 442 ms Normal sinus rhythm Incomplete right bundle branch block When compared with ECG of 11-JUN-2020 19:37, Minimal criteria for Anterior infarct are no longer Present Inverted T waves have replaced nonspecific T wave abnormality in Inferior leads Confirmed by Flash Hodge ([id number]) on 10/04/2022 10:34:00 AM Referred By: REFERRED SELF Confirmed By:Niraj Hodge
--- NOTE | 2022-10-04 17:42 | Hospitalist Progress Note ---
Date of Service October 04, 2022 Assessment & Plan (1) Colitis: Plan: Acute Gastroenteritis, . CT of the abdomen concerning for colitis of the ascending, descending and sigmoid colon with proctitis - infectious vs inflammatory etiology. Patient is afebrile, HD stable. Did not produce diarhea since arrival -Check Stool PCR and C. diff -Will hold off on antibiotics for now Gi medicine consult Hepatic steatosis seen, normal LFT (2) Kidney stone: Plan: Possible recently passed kidney stone noted on CT imaging. Passing stone could be possible source of patient's severe episode - pain, vomiting/diarrhea? Left nephrolithiasis present with no report of hydronephrosis or obstruction currently. -does not explain de león colitis (3) Aortic aneurysm: Plan: CTA of the chest performed which revealed a 3.55 cm ascending aortic aneurysm. No prior angiography of aorta performed. Of note, patient's father of a ruptured aortic aneurysm at the age of 32 -Risk factor management - control BP -Consider Vascular Surgery Consultation perhaps as out pt (4) Dementia: Plan: Patient is oriented to self -Frequent orientation -Continue Aircept 10mg po qAM (5) BPH (benign prostatic hyperplasia): Plan: Chronic -Continue Flomax 0.4mg po daily (6) Diabetes: Plan: Patient on Metformin 500mg po daily. No HgbA1C in our records -ISS -Check HgbA1C with AM labs Ppx - low risk for DVT Code- Full per discussion with patient and 10/04 Admission and Anticipated Discharge Date Admission Date: October 04, 2022 Subjective PT did not have diarrhea, and has no immediate complaints of abdominal pain Physical Exam Physical Exam: Abd is nabs, soft and non tender pt is oriented x2 Results & Data Results & Data Vital Signs (Past 12 Hours) Vital Signs Temp Pulse Resp BP Pulse Ox O2 Del Method 10/04/22 15:37 97.9 F 54 L 16 111/66 95 Room Air 10/04/22 07:48 98.2 F 54 L 16 113/65 94 Room Air PG Care Time/CCT Total # of Minutes Spent Total Time Spent with Patient: Total time spent is greater than 50% in coordination of care (as documented) at patient's floor/unit and/or counseling patient: Coding Level of Care Code 64060 SUB INP/OBS CARE 2/35MIN Diagnoses Colitis K52.9 Kidney stone N20.0 Aortic aneurysm I71.9 Dementia F03.90 BPH (benign prostatic hyperplasia) N40.0 Diabetes E11.9
[2022-10-05] MEDS: ASPIRIN 81 MG ECTAB PO SCH (08:36)
[2022-10-05] MEDS: DONEPEZIL HCL 10 MG TAB PO SCH (08:36)
[2022-10-05] MEDS: INSULIN ASPART PER UNIT CHARGE SC SCH ×4 (08:36→20:31)
[2022-10-05] MEDS: CITALOPRAM 20 MG TAB PO SCH (08:36)
[2022-10-05] MEDS: TAMSULOSIN HCL 0.4 MG CAP PO SCH (08:36)
[2022-10-05 09:37] LABS: Hematocrit (blood only) 37.7 % (42.0-52.0); Hemoglobin 12.9 g/dl (14.0-18.0); Mean Corpuscular Hemoglobin 30.3 pg (25.0-34.0); Mean Corpuscular Hgb Conc 34.2 g/dL (32.0-36.0); Mean Corpuscular Volume 88.5 fL (80.0-100.0); Mean Platelet Volume 11.2 fL (9.4-12.4); Platelet Count 126 K/uL (130-400); RDW Coefficient of Variation 13.6 % (11.5-14.5); RDW Standard Deviation 43.8 fL (36.4-46.3); Red Blood Count 4.26 M/uL (4.70-6.10); White Blood Count 7.19 K/ul (4.8-10.8)
--- NOTE | 2022-10-05 09:54 | Gastrointestinal Consultation ---
Date of Consultation October 05, 2022 Assessment & Plan (1) Abnormal CT scan, colon: Patient with nausea, vomiting, & diarrhea prior to admission with CT findings of colitis in ascending, descending, sigmoid, & rectum. -Unable to obtain stool studies as patient is no longer moving his bowels -Will place bowel prep orders for colonoscopy to occur on 10/06/22 Supervising Physician Co-Signing Physician Notes Agree with AGAPITO Hill as above Abd: Soft, NT, ND, +BS Continue current therapy Bowel prep tonight, Colonoscopy tomorrow History of Present Illness Reason for Consultation: Colitis Attending Physician: Aj Cerna MD History of Present Illness PATIENT IS BEING SEEN IN [facility]OSS COVERAGE FOR [facility]. Patient is a 67 yo male with PMH of HTN, DM, clear cell RCC, & dementia who presented to the ED with acute abdominal/flank pain. Due to patient's memory issues, he is unable to give me a history of the events that led to this consult. Per the chart, it appears that the patient developed vomiting & diarrhea prior to presenting to the hospital. He developed severe abdominal pain so his brought him to the ED. A CT scan indicated evidence of colitis of the ascending, descending, & sigmoid colon with proctitis. A stool PCR was ordered but patient has had no further bowel movements since being hospitalized. He notes some improvement of his abdominal pain. h/h 12.9/37.7. bun 21, cr 2.23. Last colonoscopy was in January 2021 that indicated diverticulosis, internal hemorrhoids, & 3 polyps. Allergies Allergy/AdvReac Type Severity Reaction Status Date / Time erythromycin base Allergy Intermediate rash? Verified 10/03/22 22:52 Macrolide Antibiotics AdvReac Mild ear pain Verified 10/03/22 22:52 Home Medications Medication Instructions Recorded Confirmed Type antiarthritic combination no.2 900 900 mg PO QAM 02/13/20 10/03/22 History mg tablet (glucosamine-chondroitin) aspirin 81 mg tablet,delayed 81 mg PO QAM 02/13/20 10/03/22 History release (Adult Aspirin Regimen) cholecalciferol (vitamin D3) 25 25 mcg PO QAM 02/13/20 10/03/22 History mcg (1,000 unit) capsule metformin 500 mg tablet 500 mg PO QAM 02/13/20 10/03/22 History tamsulosin 0.4 mg capsule 0.4 mg PO QAM 02/19/20 10/03/22 History vitamin B complex 1 tab PO QAM 08/12/20 10/03/22 History vitamin E 268 mg (400 unit) capsule 400 unit PO QAM 08/13/20 10/03/22 History citalopram 20 mg tablet 20 mg PO DAILY 10/28/20 10/03/22 History donepezil 10 mg tablet 10 mg PO QAM #90 tabs 09/02/22 10/03/22 Rx Patient History Medical History Anxiety no meds BPH (benign prostatic hyperplasia) Chronic back pain 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 Dr. Nielsen 2014 History of cataract surgery bilat History of colonoscopy History of left inguinal hernia repair (09/01/20) Left Inguinal Hernia Open Repair(Left) with mesh- Mata Nielsen MD, FACS 09/01/20 History of surgical removal of lesion Renal cancer lesion removed [place] teeth extracted Family History Uncle Alzheimer disease Aunt Alzheimer disease Mother Cancer Father Aortic aneurysm Other Heart disease Social History Smoking Status: Unknown if ever smoked Tobacco Type: Smokeless Tobacco (Dip or Chew) Second Hand Exposure: No; Do You Dip or Chew Tobacco: Yes; Hx Alcohol Use: No Hx Substance Use: No Preferred Language: Wolof Communication Ability: Effective Inventory Management Specialist Required: No Beliefs That Will Affect Care: None marital status: Current Living Situation: Spouse current occupational status: employed Feels Safe at Home: Yes Assistive Devices: None Review of Systems Review of Systems: Other (History difficult to obtain due to significant memory issues) Gastrointestinal: no abdominal pain, no diarrhea/loose stools and no blood in stools Physical Exam Constitutional: well developed Respiratory: normal respiratory effort, lungs clear to auscultation Cardiovascular: Rate/Rhythm: regular rate Gastrointestinal (Abdomen): normal bowel sounds, soft, nontender, no hepatosplenomegaly Musculoskeletal: Head/Neck/Chest: normocephalic Psychiatric: Orientation: alert and oriented x 3 Results & Data Vital Signs (Past 12 Hours) Vital Signs Temp Pulse Resp BP Pulse Ox O2 Del Method 10/05/22 07:43 36.7 C 54 L 16 125/57 L 95 Room Air PG Care Time/CCT Total # of Minutes Spent Total Time Spent with Patient: Total time spent is greater than 50% in coordination of care (as documented) at patient's floor/unit and/or counseling patient: Coding Level of Care Code 07805 INT INP/OBS CARE 3/75MIN Diagnoses Abnormal CT scan, colon R93.3
[2022-10-05 09:59] LABS: BUN Creatinine Ratio 9.4 (10-20); Calcium 8.8 mg/dl (8.6-10.3); Creatinine Clr Calc Pharmacy 36.8 ml/min; Est GFR (African American) 34.3 ml/min; Est GFR (Non-African American) 29.6 ml/min; Phosphorus 3.2 mg/dl (2.5-4.9); Potassium 4.1 mmol/L (3.5-5.1)
[2022-10-05] MEDS ORDERED: bisacodyL 5 MG TABEC PO ONE (15:01)
[2022-10-05] MEDS: POLYETHYLENE (MIRALAX) 17 GM PACK PO SCH (17:26)
--- NOTE | 2022-10-05 18:11 | Hospitalist Progress Note ---
Date of Service October 05, 2022 Assessment & Plan (1) Colitis: Plan: Acute Gastroenteritis, . CT of the abdomen concerning for colitis of the ascending, descending and sigmoid colon with proctitis - infectious vs inflammatory etiology. Patient is afebrile, HD stable. Did not produce diarhea since arrival -did not produce Stool to check PCR and C. diff -Will hold off on antibiotics for now Gi medicine consult planning on colonoscopy 10/06/22 Hepatic steatosis seen, normal LFT (2) Kidney stone: Plan: Possible recently passed kidney stone noted on CT imaging. Passing stone could be possible source of patient's severe episode - pain, vomiting/diarrhea? Left nephrolithiasis present with no report of hydronephrosis or obstruction currently. -does not explain de león colitis (3) Aortic aneurysm: Plan: CTA of the chest performed which revealed a 3.55 cm ascending aortic aneurysm. No prior angiography of aorta performed. Of note, patient's father of a ruptured aortic aneurysm at the age of 32 -Risk factor management - control BP -Consider Vascular Surgery Consultation perhaps as out pt (4) Dementia: Plan: Patient is oriented to self -Frequent orientation -Continue Aircept 10mg po qAM (5) BPH (benign prostatic hyperplasia): Plan: Chronic -Continue Flomax 0.4mg po daily (6) Diabetes: Plan: Patient on Metformin 500mg po daily. No HgbA1C in our records -ISS -Check HgbA1C with AM labs Ppx - low risk for DVT Code- Full per discussion with patient and 10/04 Admission and Anticipated Discharge Date Admission Date: October 04, 2022 Subjective PT did not have diarrhea, and has no immediate complaints of abdominal pain Physical Exam Physical Exam: Abd is nabs, soft and non tender pt is oriented x2 Results & Data Results & Data Vital Signs (Past 12 Hours) Vital Signs Temp Pulse Resp BP Pulse Ox O2 Del Method 10/05/22 15:14 97.7 F 55 L 16 110/64 95 Room Air 10/05/22 07:43 98.1 F 54 L 16 125/57 L 95 Room Air PG Care Time/CCT Total # of Minutes Spent Total Time Spent with Patient: Total time spent is greater than 50% in coordination of care (as documented) at patient's floor/unit and/or counseling patient: Coding Level of Care Code 40308 SUB INP/OBS CARE 2/35MIN Diagnoses Colitis K52.9 Kidney stone N20.0 Aortic aneurysm I71.9 Dementia F03.90 BPH (benign prostatic hyperplasia) N40.0 Diabetes E11.9
[2022-10-06] MEDS ORDERED: Nursing to Pharmacy Communication SCH (01:30)
[2022-10-06] MEDS: POLYETHYLENE (MIRALAX) 17 GM PACK PO SCH (03:28)
[2022-10-06] MEDS: INSULIN ASPART PER UNIT CHARGE SC SCH ×3 (06:09→18:40)
[2022-10-06] MEDS: TAMSULOSIN HCL 0.4 MG CAP PO SCH (08:07)
[2022-10-06] MEDS: DONEPEZIL HCL 10 MG TAB PO SCH (08:07)
[2022-10-06] MEDS: ASPIRIN 81 MG ECTAB PO SCH (08:07)
[2022-10-06] MEDS: CITALOPRAM 20 MG TAB PO SCH (08:07)
[2022-10-06 09:15] LABS: Hematocrit (blood only) 37.4 % (42.0-52.0); Hemoglobin 12.8 g/dl (14.0-18.0); Mean Corpuscular Hgb Conc 34.2 g/dL (32.0-36.0); Mean Corpuscular Volume 87.6 fL (80.0-100.0); Mean Platelet Volume 10.9 fL (9.4-12.4); Platelet Count 123 K/uL (130-400); RDW Coefficient of Variation 13.5 % (11.5-14.5); RDW Standard Deviation 43.3 fL (36.4-46.3); Red Blood Count 4.27 M/uL (4.70-6.10); White Blood Count 7.75 K/ul (4.8-10.8)
[2022-10-06 09:38] LABS: BUN Creatinine Ratio 8.5 (10-20); Calcium 9.1 mg/dl (8.6-10.3); Creatinine Clr Calc Pharmacy 38.6 ml/min; Est GFR (African American) 36.3 ml/min; Est GFR (Non-African American) 31.3 ml/min; Potassium 4.1 mmol/L (3.5-5.1)
[2022-10-06] MEDS ORDERED: POLYETHYLENE (MIRALAX) 17 GM PACK PO STA (09:43)
--- NOTE | 2022-10-06 10:52 | History & Physical Bridge Note ---
Date of Service October 06, 2022 History & Physical Bridge Note I have examined the patient, reviewed the History & Physical and in the interval since the performance of the History & Physical I have noted the following changes of clinical significance: no changes noted Patient's nurse contacted endoscopy to inform us his bowels were not prepped adequately despite consuming the whole prep. An additional 4 doses of Miralax have been ordered. Keep NPO otherwise and proceed with colonoscopy this afternoon if prepped. Supervising Physician Co-Signing Physician Notes Agree with AGAPITO Hill as above Abd: Soft, NT, ND, +BS Continue current therapy and supportive care Proceed with colonoscopy now.
--- NOTE | 2022-10-06 11:08 | Anesthesiology Consultation ---
Date of Service October 06, 2022 Assessment & Plan (1) Encounter for pre-operative examination: Chart Review Chart Review: Acceptable Risk for Surgery, Patient NOT seen in Pre Admission Testing and blasting entry specialist initiated Consults Requested none History Surgery Operation Date: 10/06/22 16:30 Proposed Procedures p Colonoscopy Dr. Harley Jeffers Case, DO Height/Weight Height: 6 ft 1 in Weight: 87.2 kg Allergies Allergy/AdvReac Type Severity Reaction Status Date / Time erythromycin base Allergy Intermediate rash? Verified 10/03/22 22:52 Macrolide Antibiotics AdvReac Mild ear pain Verified 10/03/22 22:52 Medications Home Medications Medication Instructions Recorded Confirmed Last Taken antiarthritic combination no.2 900 900 mg PO QAM 02/13/20 10/03/22 10/03/22 mg tablet (glucosamine-chondroitin) aspirin 81 mg tablet,delayed 81 mg PO QAM 02/13/20 10/03/22 10/03/22 release (Adult Aspirin Regimen) cholecalciferol (vitamin D3) 25 25 mcg PO QAM 02/13/20 10/03/22 10/03/22 mcg (1,000 unit) capsule metformin 500 mg tablet 500 mg PO QAM 02/13/20 10/03/22 10/03/22 tamsulosin 0.4 mg capsule 0.4 mg PO QAM 02/19/20 10/03/22 10/03/22 vitamin B complex 1 tab PO QAM 08/12/20 10/03/22 10/03/22 vitamin E 268 mg (400 unit) capsule 400 unit PO QAM 08/13/20 10/03/22 10/03/22 citalopram 20 mg tablet 20 mg PO DAILY 10/28/20 10/03/22 10/03/22 donepezil 10 mg tablet 10 mg PO QAM #90 tabs 09/02/22 10/03/22 10/03/22 Active Medications Generic Name Dose Route Start Last Admin Trade Name Freq PRN Reason Stop Dose Admin Acetaminophen 650 mg 10/04/22 01:57 10/05/22 12:07 Acetaminophen 325 Mg Tab PO 11/03/22 01:56 650 mg Q4H PRN Administration Pain or Fever Aspirin 81 mg 10/04/22 09:00 10/06/22 08:07 Aspirin 81 Mg Ectab PO 11/03/22 08:59 81 mg QAM RICHARD Administration Citalopram Hydrobromide 20 mg 10/04/22 09:00 10/06/22 08:07 Citalopram 20 Mg Tab PO 11/03/22 08:59 20 mg DAILY RICHARD Administration Donepezil HCl 10 mg 10/04/22 09:00 10/06/22 08:07 Donepezil Hcl 10 Mg Tab PO 11/03/22 08:59 10 mg QAM RICHARD Administration Insulin Aspart 0 units 10/06/22 06:00 10/06/22 06:09 Insulin Aspart Per Unit Charge SC 11/05/22 05:59 Not Given Q6 RICHARD Tamsulosin HCl 0.4 mg 10/04/22 09:00 10/06/22 08:07 Tamsulosin Hcl 0.4 Mg Cap PO 11/03/22 08:59 0.4 mg QAM RICHARD Administration Past Medical History Medical History (Updated 10/06/22 @ 11:09 by Flash Davidson MD) Anxiety no meds BPH (benign prostatic hyperplasia) Chronic back pain Clear cell carcinoma of right kidney resolved > no chemo/radiation Depression no meds Diverticulitis Encounter for pre-operative examination Hyperlipidemia Kidney stones Lung nodule pt unaware Mild cognitive impairment Osteoarthritis Type 2 diabetes mellitus NIDDM Vitamin D deficiency Past Family History Family History Uncle Alzheimer disease Aunt Alzheimer disease Mother Cancer Father Aortic aneurysm Other Heart disease Past Surgical History Surgical History H/O oral surgery Cystic lesion removed H/O partial nephrectomy right H/O right inguinal hernia repair Laparoscopic recurrent right inguinal hernia repair. Dr. Nielsen 2014 History of cataract surgery bilat History of colonoscopy History of left inguinal hernia repair (09/01/20) Left Inguinal Hernia Open Repair(Left) with mesh- Mata Nielsen MD, FACS 09/01/20 History of surgical removal of lesion Renal cancer lesion removed [place] teeth extracted Social History Smoking Status: Unknown if ever smoked tobacco type: smokeless tobacco Do You Dip or Chew Tobacco: Yes Hx Alcohol Use: No Alcohol type: hard liquor alcohol intake frequency: a few times a month Hx Substance Use: No substance use type: prescription drug Last Used Substance: Unknown Physical Exam Vital Signs Last Vital Signs Temp 36.5 C 10/06/22 07:05 Pulse 65 10/06/22 07:05 Resp 18 10/06/22 07:05 BP 136/80 10/06/22 07:05 Pulse Ox 96 10/06/22 07:05 O2 Del Method Room Air 10/06/22 07:05 O2 Flow Rate 2 10/04/22 02:21 Testing Laboratory Results 10/06/22 08:31 10/06/22 08:31 Hemoglobin A1c 5.7 % (4.5-5.6) H 10/03/22 21:59 Urine Color Yellow 10/03/22 23:38 Urine Appearance Clear (Clear) 10/03/22 23:38 Urine pH 8.5 (4.5-7.5) H 10/03/22 23:38 Ur Specific [place] 1.022 (1.000-1.030) 10/03/22 23:38 Urine Protein Negative (Negative) 10/03/22 23:38 Urine Glucose (UA) Negative (Negative) 10/03/22 23:38 Urine Ketones 2+ (Negative) H 10/03/22 23:38 Urine Nitrite Negative (Negative) 10/03/22 23:38 Ur Leukocyte Esterase Negative (Negative) 10/03/22 23:38 Urine WBC (Auto) 0 /hpf (0-5) 10/03/22 23:38 Urine RBC (Auto) 0-4 /hpf (0-4) 10/03/22 23:38 U Hyaline Cast (Auto) 0 /lpf (0-5) 10/03/22 23:38 U Epithel Cells (Auto) 0-5 /lpf (0-5) 10/03/22 23:38 Urine Bacteria (Auto) Negative (Negative) 10/03/22 23:38 10/06/22 05:39 POC Glucose 91 Electrocardiogram Date: 10/03/22 Test Reason : Blood Pressure : / mmHG Vent. Rate : 060 BPM Atrial Rate : 060 BPM P-R Int : 158 ms QRS Dur : 116 ms QT Int : 442 ms P-R-T Axes : 065 -18 003 degrees QTc Int : 442 ms Normal sinus rhythm Incomplete right bundle branch block When compared with ECG of 11-JUN-2020 19:37, Minimal criteria for Anterior infarct are no longer Present Inverted T waves have replaced nonspecific T wave abnormality in Inferior leads Confirmed by Flash Hodge ([id number]) on 10/04/2022 10:34:00 AM Chest X-Ray Date: 10/03/22 XR chest 1V portable CLINICAL HISTORY: Chest pain, nonspecific TECHNIQUE: Single frontal radiograph of the chest was obtained. Comparison: Comparison is made to chest radiograph 06/11/2020 FINDINGS: No lines and tubes are seen. The cardiomediastinal silhouette is normal. The anirudh gs are clear. No evidence of pleural effusion or pneumothorax. IMPRESSION: No acute chest disease.
[2022-10-06] MEDS ORDERED: PROPOFOL IV EMULSION 10 MG/ML 20 ML VIAL IV ONE ×2 (16:39→17:23)
--- NOTE | 2022-10-06 17:27 | GI REPORT ---
Patient Name: Kostas Tolliver Procedure Date: 10/06/2022 4:46 PM Date of : 1955 Admit Type: Inpatient Age: 67 Gender: Male Attending MD: Chase Souza DO, Procedure: Colonoscopy Providers: Chase Souza DO Referring MD: Aj Cerna Indications: Abnormal CT of the GI tract Medicines: Monitored Anesthesia Care Complications: No immediate complications. Estimated Blood Loss: Estimated blood loss: none. Procedure: Pre-Anesthesia Assessment: - Prior to the procedure, a History and Physical was performed, and patient medications and allergies were reviewed. The patient's tolerance of previous anesthesia was also reviewed. The risks and benefits of the procedure and the sedation options and risks were discussed with the patient. All questions were answered, and informed consent was obtained. Prior Anticoagulants: The patient has taken no anticoagulant or antiplatelet agents except for aspirin. ASA Grade Assessment: II - A patient with mild systemic disease. After reviewing the risks and benefits, the patient was deemed in satisfactory condition to undergo the procedure. After I obtained informed consent, the scope was passed under direct vision. Throughout the procedure, the patient's blood pressure, pulse, and oxygen saturations were monitored continuously. The Loaner was introduced through the anus and advanced to the terminal ileum. The colonoscopy was performed without difficulty. The patient tolerated the procedure well. The quality of the bowel preparation was poor. The terminal ileum, ileocecal valve, appendiceal orifice, and rectum were photographed. Findings: The perianal and digital rectal examinations were normal. Multiple small-mouthed diverticula were found in the sigmoid colon. Non-bleeding internal hemorrhoids were found during retroflexion. The hemorrhoids were small. Impression: - Preparation of the colon was poor. - Diverticulosis in the sigmoid colon. - Non-bleeding internal hemorrhoids. - No specimens collected. Recommendation: - [facility] to [facility] care. - Advance diet as tolerated. - Continue present medications. - Repeat colonoscopy in 6 months because the bowel preparation was poor. - Return to primary care physician as previously scheduled. Chase Souza DO 10/06/2022 5:27:07 PM This report has been signed electronically. Note Initiated On: 10/06/2022 4:46 PM Number of Addenda: 0 I attest to the content of the Intraoperative Record and orders documented therein, exceptions below {[id number]}
--- NOTE | 2022-10-06 17:31 | Anesthesiology Progress Note ---
Date of Service October 06, 2022 Anesthesia Post Procedure Vital Signs Vital Signs: Temp Pulse Resp BP Pulse Ox O2 Del Method 10/06/22 17:21 84 16 97/48 L 96 Room Air 10/06/22 15:50 36 C L 68 16 133/79 96 Room Air 10/06/22 14:24 37.4 C 64 16 133/80 94 Room Air 10/06/22 07:05 36.5 C 65 18 136/80 96 Room Air 10/05/22 20:09 37.3 C 55 L 18 128/71 95 Room Air Pain Intensity Back: Pain Intensity: 0 Transfer of Care Handoff Completed per policy Notes Mental Status: alert / awake / arousable and participated in evaluation Patient Amnestic to Procedure: Yes Nausea / Vomiting: adequately controlled Pain: adequately controlled Airway Patency, RR, SpO2: stable & adequate BP & HR: stable & adequate Hydration State: stable & adequate Anesthetic Complications: no major complications apparent
[2022-10-07] MEDS ORDERED: INSULIN ASPART PER UNIT CHARGE SC SCH (07:30)
[2022-10-07] MEDS: TAMSULOSIN HCL 0.4 MG CAP PO SCH (09:13)
[2022-10-07] MEDS: DONEPEZIL HCL 10 MG TAB PO SCH (09:13)
[2022-10-07] MEDS: CITALOPRAM 20 MG TAB PO SCH (09:13)
[2022-10-07] MEDS: ASPIRIN 81 MG ECTAB PO SCH (09:13)
--- NOTE | 2022-10-07 10:17 | Gastroenterology Progress Note ---
Date of Service October 07, 2022 Assessment & Plan (1) Abnormal CT scan, colon: Plan: Patient with nausea, vomiting, & diarrhea prior to admission with CT findings of colitis in ascending, descending, sigmoid, & rectum. Sx have resolved and no findings on colonoscopy to explain CT. -Outpatient colonoscopy by primary service desk associate (PSJeri) in 6 months. -Will sign off at this time. Admission and Anticipated Discharge Date Admission Date: October 04, 2022 Subjective Patient is status post colonoscopy yesterday which demonstrated poor bowel preparation, diverticulosis and internal hemorrhoids. No findings of inflammation of the colon. Today, he is reporting no GI complaints. No abdominal pain, diarrhea, or rectal bleeding. Review of Systems Constitutional: no problem reported Gastrointestinal: as per Subjective / HPI Physical Exam Constitutional: WD/WN, vitals as above Respiratory: normal respiratory effort, lungs clear to auscultation Cardiovascular: RRR, no murmur, no edema Gastrointestinal (Abdomen): normal bowel sounds, soft, nontender, no hepatosplenomegaly Psychiatric: A+Ox3, euthymic affect Results & Data Results & Data Vital Signs (Past 12 Hours) Vital Signs Temp Pulse Pulse Resp BP Pulse Ox O2 Del Method 10/07/22 07:57 36.6 C 67 16 104/66 98 Room Air 10/07/22 07:19 36.7 C 65 16 107/69 97 Room Air PG Care Time/CCT Total # of Minutes Spent Total Time Spent with Patient: Total time spent is greater than 50% in coordination of care (as documented) at patient's floor/unit and/or counseling patient: Coding Level of Care Code 78806 SUB INP/OBS CARE 3/50MIN Diagnoses Abnormal CT scan, colon R93.3
--- NOTE | 2022-10-07 12:22 | Discharge Summary ---
Date of Service October 07, 2022 Admission HPI Per Admitting Provider Kostas Tolliver is a 67yo male with history of HTN, DM, Dementia, clear cell RCC presenting with acute onset of abdominal/flank pain. Patient with underlying dementia and does not provide details of the events prior to arrival. is at bedside and provides history. Patient was in his usual state of health until this evening around 18:30 when he developed acute onset of vomiting and watery diarrhea. His vomiting persisted until approximately 20:00 then he developed severe pain in the back, flank and abdomen. reports that patient was very restless and couldn't get comfortable. called [facility] [employer] forming machine setter service and was instructed to give him Ibuprofen. He took some Ibuprofen then promptly vomited it up and they came to the ER. Upon arrival patient was noted to be pale and ill in appearance. He was administered Morphine, Dilaudid and Zofran wtih improvement in symptoms. Presently he denies any complaints. ER Course: Dilaudid Morphine Zofran Discharge Exam Abd is nabs, soft and non tender pt is oriented x2 Discharge Data Allergies Allergy/AdvReac Type Severity Reaction Status Date / Time erythromycin base Allergy Intermediate rash? Verified 10/03/22 22:52 Macrolide Antibiotics AdvReac Mild ear pain Verified 10/03/22 22:52 Consultations 10/04/22 00:30 ED Decision to Admit Stat 10/04/22 17:33 Consult Gastroenterology Routine Procedures Performed Operation Date: 10/06/22 16:30 Actual Procedures p Colonoscopy - Chase Jeffers Case, DO Ordered Studies 10/03/22 22:11 CT angio chest dissec wo/w con Stat CTA abdomen pelvis w con [CT angio abdomen pelvis w con] Stat Hospital Course (1) Colitis: Acute Gastroenteritis, . CT of the abdomen concerning for colitis of the ascending, descending and sigmoid colon with proctitis - infectious vs inflammatory etiology. Patient is afebrile, HD stable. Did not produce diarhea since arrival -did not produce Stool to check PCR and C. diff -Will hold off on antibiotics for now Gi medicine consult planning on colonoscopy 10/06/22 Hepatic steatosis seen, normal LFT (2) Kidney stone: Possible recently passed kidney stone noted on CT imaging. Passing stone could be possible source of patient's severe episode - pain, vomiting/diarrhea? Left nephrolithiasis present with no report of hydronephrosis or obstruction currently. -does not explain de león colitis (3) Aortic aneurysm: CTA of the chest performed which revealed a 3.55 cm ascending aortic aneurysm. No prior angiography of aorta performed. Of note, patient's father of a ruptured aortic aneurysm at the age of 32 -Risk factor management - control BP -Consider Vascular Surgery Consultation perhaps as out pt (4) Dementia: Patient is oriented to self -Frequent orientation -Continue Aircept 10mg po qAM (5) BPH (benign prostatic hyperplasia): Chronic -Continue Flomax 0.4mg po daily (6) Diabetes: Patient on Metformin 500mg po daily. No HgbA1C in our records -ISS -Check HgbA1C with AM labs Ppx - low risk for DVT Code- Full per discussion with patient and 10/04 Discharge Plan Discharge Items Patient Disposition: Home - Self-Care Reason For Visit: ABDOMINAL PAIN Discharge Diagnosis: abdominal pain Condition on Discharge: Fair Activity: Resume your previous activity Non-emergency contact: Primary Care Provider Call non-emergency contact if: you have any medication questions Follow-up/Referrals: Michael Monroy MD [Primary Care Provider] - Diet: Carb Consistent or DM2 Addtl Attending Provider Instructions: Thankfully your symptoms resolved. Dr. Souza recommends that you have an outpatient colonoscopy by primary medication manager (PSH) in 6 months. Given you A1C at 5.6, will recommend stopping the metformin. We may consider restarting this but instead use the metformin extended release if your A1C rises. Extended release metformin is better tolerated and likely does not cause any GI symptoms. However, given how well your blood sugar has been, it might be better to hold off for now. Pending Studies at Discharge: No Stand-Alone Forms: [facility], Smoking Cessation Medications and DE Order Prescriptions: Continued donepezil 10 mg tablet 10 mg PO QAM Qty: 90 1RF citalopram 20 mg tablet 20 mg PO DAILY aspirin [Adult Aspirin Regimen] 81 mg tablet,delayed release (DR/EC) 81 mg PO QAM glucosamine-chondroitin 900 mg tablet 900 mg PO QAM cholecalciferol (vitamin D3) 25 mcg (1,000 unit) capsule 25 mcg PO QAM tamsulosin 0.4 mg capsule 0.4 mg PO QAM vitamin B complex Tablet 1 tab PO QAM vitamin E 400 unit Capsule 400 unit PO QAM Discontinued metformin 500 mg tablet 500 mg PO QAM Discharge Orders: Discharge Order (Routine); Ordered 10/07/22 Ordered By: Evan Palmer/Other Patient Handouts: Healthy Meals for Diabetes Admission Data Admit Date/Time: 10/04/22 00:56 Attending Provider: Evan Silva Admit Provider: Kelli Bernal Primary Care Provider: Michael Monroy Other Providers: Kelli Bernal ; Chase Souza Other Interventions: Discharge Summary Assessment (RN) Last Done: 10/07/22 11:31 Coding Diagnoses Colitis K52.9 Kidney stone N20.0 Aortic aneurysm I71.9 Dementia F03.90 BPH (benign prostatic hyperplasia) N40.0 Diabetes E11.9
== END 2022-10-07 12:21 | disposition home or self-care (01) | DRG 392 ==
LOC: ED 21:49 → SUATTDRO 10-04 00:56 → 3E 10-04 00:56